=== PATIENT | male | born 2000 | race Caucasian/White ===

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

== ENCOUNTER 2021-01-11 22:00 | Inpatient (IN) | payer MEDICAID, OTHER ==
[2021-01-11 22:09] VITALS: RESP 18
--- NOTE | 2021-01-11 23:12 | ED ---
Psych HPI - General Chief Complaint: Psychiatric Symptoms Stated Complaint: Mental Health Time Seen by Provider: 01/11/21 22:15 Source: patient, RN notes reviewed, old records reviewed Mode of arrival: ambulatory - History of Present Illness Initial Comments: This is a 20-year-old male DF for evaluation patient has history of psychiatric illness coming in for psychiatric evaluation and treatment. Patient denies recent drugs or alcohol. Patient states he has continued racing thoughts unable control house painstakingly is thinking of suicide MD Complaint: suicidal ideation, feels depressed -: days(s) Associated Psychiatric Symptoms: depression, suicidal ideation History of same: Yes Quality: constant Improves With: none Worsens With: none Associated Symptoms: denies other symptoms Treatments Prior to Arrival: placed on mental health hold If Self Harm: admits thoughts of self harm - Related Data Home Medications Medication Instructions Recorded Confirmed Testosterone Cypionate 200 mg IM Q14D 01/11/21 01/11/21 [Depo-Testosterone] Allergies Allergy/AdvReac Type Severity Reaction Status Date / Time bee venom protein (honey bee) Allergy Unknown Verified 01/11/21 22:34 Review of Systems ROS Statement: Those systems with pertinent positive or pertinent negative responses have been documented in the HPI. ROS Other: All systems not noted in ROS Statement are negative. Past Medical History Past Medical History: No Reported History History of Any Multi-Drug Resistant Organisms: None Reported Additional Past Surgical History / Comment(s): testicular torsion Past Psychological History: No Psychological Hx Reported Smoking Status: Never smoker Past Alcohol Use History: Occasional Past Drug Use History: Marijuana General Exam Limitations: no limitations General appearance: alert, in no apparent distress Head exam: Present: atraumatic, normocephalic, normal inspection Eye exam: Present: normal appearance, PERRL, EOMI. Absent: scleral icterus, conjunctival injection, periorbital swelling ENT exam: Present: normal exam, mucous membranes moist Neck exam: Present: normal inspection. Absent: tenderness, meningismus, lymphadenopathy Respiratory exam: Present: normal lung sounds bilaterally. Absent: respiratory distress, wheezes, rales, rhonchi, stridor Cardiovascular Exam: Present: regular rate, normal rhythm, normal heart sounds. Absent: systolic murmur, diastolic murmur, rubs, gallop, clicks GI/Abdominal exam: Present: soft, normal bowel sounds. Absent: distended, tenderness, guarding, rebound, rigid Extremities exam: Present: normal inspection, full ROM, normal capillary refill. Absent: tenderness, pedal edema, joint swelling, calf tenderness Back exam: Present: normal inspection Neurological exam: Present: alert, oriented X3, CN II-XII intact Psychiatric exam: Present: normal affect, normal mood Skin exam: Present: warm, dry, intact, normal color. Absent: rash Course Vital Signs 01/11/21 22:03 Temperature 97.9 F Pulse Rate 73 Respiratory 18 Rate Blood Pressure 143/83 O2 Sat by Pulse 98 Oximetry - Reevaluation(s) Reevaluation #1: 01/11/21 23:11 Medical records reviewed Reevaluation #2: 01/11/21 23:11 Attic record for psychiatric evaluation Medical Decision Making - Medical Decision Making 20 male seen and evaluated psychiatry patient will be admitted for psychiatric evaluation and treatment - Lab Data Lab Results 01/11/21 Range/Units 23:18 Urine Color Yellow Urine Appearance Clear (Clear) Urine pH 5.5 (5.0-8.0) Ur Specific [place] 1.024 (1.001-1.035) Urine Protein Trace H (Negative) Urine Glucose (UA) Negative (Negative) Urine Ketones Trace H (Negative) Urine Blood Negative (Negative) Urine Nitrite Negative (Negative) Urine Bilirubin Negative (Negative) Urine Urobilinogen <2.0 (<2.0) mg/dL Ur Leukocyte Esterase Negative (Negative) Urine Opiates Screen Not Detected (NotDetected) Ur Oxycodone Screen Not Detected (NotDetected) Urine Methadone Screen Not Detected (NotDetected) Ur Propoxyphene Screen Not Detected (NotDetected) Ur Barbiturates Screen Not Detected (NotDetected) U Tricyclic Antidepress Not Detected (NotDetected) Ur Phencyclidine Scrn Not Detected (NotDetected) Ur Amphetamines Screen Not Detected (NotDetected) U Methamphetamines Scrn Not Detected (NotDetected) U Benzodiazepines Scrn Not Detected (NotDetected) Urine Cocaine Screen Not Detected (NotDetected) U Marijuana (THC) Screen Detected H (NotDetected) Disposition Clinical Impression: Acute anxiety, Depression, Suicidal ideation Disposition: TRANSFER TO PSYCH HOSP/UNIT Condition: Fair Is patient prescribed a controlled substance at d/c from ED?: No Referrals: Christian Dc MD [Primary Care Provider] - 1-2 days
[2021-01-11 23:42] LABS: Appearance,Urine Clear (Clear); Bilirubin,Urine Negative (Negative); Blood,Urine Negative (Negative); Color,Urine Yellow; Glucose,Urine (UA) Negative (Negative); Ketones,Urine Trace (Negative); Leukocyte Esterase,Urine Negative (Negative); Nitrite,Urine Negative (Negative); PH, Urine 5.5 (5.0-8.0); Protein,Urine Trace (Negative); Specific Gravity,Urine 1.024 (1.001-1.035); Urobilinogen,Urine <2.0 mg/dL (<2.0)
[2021-01-11 23:58] LABS: Amphetamine Screen,Urine Not Detected (NotDetected); Barbiturate Screen,Urine Not Detected (NotDetected); Benzodiazepines Screen,Urine Not Detected (NotDetected); Cocaine Screen,Urine Not Detected (NotDetected); Methadone Screen, Urine Not Detected (NotDetected); Opiate Screen,Urine Not Detected (NotDetected); Oxycodone Screen, Urine Not Detected (NotDetected); Phencyclidine Screen,Urine Not Detected (NotDetected); Tricyclic Antidepressant,Urine Not Detected (NotDetected)
[2021-01-11 23:59] LABS: Urn Cannabinoid Scrn Detected (NotDetected)
[2021-01-12] MEDS ORDERED: MAGNESIUM HYDROXIDE 2,400 MG/10 ML CUP PO PRN (02:30)
[2021-01-12] MEDS ORDERED: ACETAMINOPHEN TAB 325 MG TAB PO PRN (02:30)
[2021-01-12] MEDS ORDERED: MAG HYDROX/AL HYDROX/SIMETH 30 ML CUP PO PRN (02:30)
[2021-01-12] MEDS ORDERED: LORazepam 1 MG TAB PO PRN (02:30)
[2021-01-12 08:35] LABS: Basophils # (A) 0.1 k/uL (0-0.2); Basophils % (A) 1 %; Eosinophils # (A) 0.2 k/uL (0-0.7); Eosinophils % (A) 4 %; HCT 43.3 % (39.0-53.0); HGB 15.2 gm/dL (13.0-17.5); Lymphocytes # (A) 1.8 k/uL (1.0-4.8); Lymphocytes % (A) 31 %; MCH 30.3 pg (25.0-35.0); MCV 86.5 fL (80.0-100.0); Mean Platelet Volume 7.7; Monocytes # (A) 0.6 k/uL (0-1.0); Monocytes % (A) 9 %; Neutrophils # (A) 3.2 k/uL (1.3-7.7); Neutrophils % (A) 54 %; Platelet Count 251 k/uL (150-450); RBC 5.01 m/uL (4.30-5.90); RDW 13.3 % (11.5-15.5)
[2021-01-12 08:59] LABS: ALT 44 U/L (4-49); AST 35 U/L (17-59); African American GFR (CKD) >90 (>60 ml/min/1.73 sqM); Albumin 4.4 g/dL (3.5-5.0); Alkaline Phosphatase 89 U/L (38-126); Anion Gap 6 mmol/L; Bilirubin,Unconjugated 0.9 mg/dL (0.0-1.1); Blood Urea Nitrogen 15 mg/dL (9-20); Calcium 9.6 mg/dL (8.4-10.2); Carbon Dioxide 28 mmol/L (22-30); Chloride 104 mmol/L (98-107); Cholesterol 190 mg/dL (<200); Glucose 82 mg/dL (74-99); HDL Cholesterol 29 mg/dL (40-60); LDL Cholesterol,Calculated 140 mg/dL (0-99); Non-African American GFR(CKD) >90 (>60 ml/min/1.73 sqM); Potassium 4.3 mmol/L (3.5-5.1); Sodium 138 mmol/L (137-145); Total Bilirubin 0.8 mg/dL (0.2-1.3); Total Protein 7.3 g/dL (6.3-8.2); Triglycerides 106 mg/dL (<150)
[2021-01-12] MEDS ORDERED: LORazepam 2 MG/ML INJ IM PRN (11:32)
--- NOTE | 2021-01-12 11:43 | P.HP ---
Psychiatric H&P - . H&P Date: 01/12/21 History & Physical: Allergies Allergy/AdvReac Type Severity Reaction Status Date / Time bee venom protein (honey bee) Allergy Unknown Verified 01/11/21 22:34 Vital Signs Temp 97.9 F 01/12/21 09:06 Pulse 61 01/12/21 02:20 Resp 18 01/12/21 02:20 BP 156/82 01/12/21 02:20 Pulse Ox 97 01/12/21 02:20 Intake & Output 01/11/21 01/12/21 01/12/21 18:59 06:59 18:59 Weight 120.202 kg Laboratory Last Values WBC 6.0 k/uL (4.0-11.0) 01/12/21 07:11 RBC 5.01 m/uL (4.30-5.90) 01/12/21 07:11 Hgb 15.2 gm/dL (13.0-17.5) 01/12/21 07:11 Hct 43.3 % (39.0-53.0) 01/12/21 07:11 MCV 86.5 fL (80.0-100.0) 01/12/21 07:11 MCH 30.3 pg (25.0-35.0) 01/12/21 07:11 MCHC 35.0 g/dL (31.0-37.0) 01/12/21 07:11 RDW 13.3 % (11.5-15.5) 01/12/21 07:11 Plt Count 251 k/uL (150-450) 01/12/21 07:11 MPV 7.7 01/12/21 07:11 Neutrophils % 54 % 01/12/21 07:11 Lymphocytes % 31 % 01/12/21 07:11 Monocytes % 9 % 01/12/21 07:11 Eosinophils % 4 % 01/12/21 07:11 Basophils % 1 % 01/12/21 07:11 Neutrophils # 3.2 k/uL (1.3-7.7) 01/12/21 07:11 Lymphocytes # 1.8 k/uL (1.0-4.8) 01/12/21 07:11 Monocytes # 0.6 k/uL (0-1.0) 01/12/21 07:11 Eosinophils # 0.2 k/uL (0-0.7) 01/12/21 07:11 Basophils # 0.1 k/uL (0-0.2) 01/12/21 07:11 Sodium 138 mmol/L (137-145) 01/12/21 07:11 Potassium 4.3 mmol/L (3.5-5.1) 01/12/21 07:11 Chloride 104 mmol/L (98-107) 01/12/21 07:11 Carbon Dioxide 28 mmol/L (22-30) 01/12/21 07:11 Anion Gap 6 mmol/L 01/12/21 07:11 BUN 15 mg/dL (9-20) 01/12/21 07:11 Creatinine 1.01 mg/dL (0.66-1.25) 01/12/21 07:11 Est GFR (CKD-EPI)AfAm >90 (>60 ml/min/1.73 sqM) 01/12/21 07:11 Est GFR (CKD-EPI)NonAf >90 (>60 ml/min/1.73 sqM) 01/12/21 07:11 Glucose 82 mg/dL (74-99) 01/12/21 07:11 Calcium 9.6 mg/dL (8.4-10.2) 01/12/21 07:11 Total Bilirubin 0.8 mg/dL (0.2-1.3) 01/12/21 07:11 Conjugated Bilirubin 0.0 mg/dL (0.0-0.3) 01/12/21 07:11 Unconjugated Bilirubin 0.9 mg/dL (0.0-1.1) 01/12/21 07:11 Delta Bilirubin 0.0 mg/dL (0.0-0.2) 01/12/21 07:11 AST 35 U/L (17-59) 01/12/21 07:11 ALT 44 U/L (4-49) 01/12/21 07:11 Alkaline Phosphatase 89 U/L (38-126) 01/12/21 07:11 Total Protein 7.3 g/dL (6.3-8.2) 01/12/21 07:11 Albumin 4.4 g/dL (3.5-5.0) 01/12/21 07:11 Triglycerides 106 mg/dL (<150) 01/12/21 07:11 Cholesterol 190 mg/dL (<200) 01/12/21 07:11 LDL Cholesterol, Calc 140 mg/dL (0-99) H 01/12/21 07:11 HDL Cholesterol 29 mg/dL (40-60) L 01/12/21 07:11 TSH 4.560 mIU/L (0.465-4.680) 01/12/21 07:11 Urine Color Yellow 01/11/21 23:18 Urine Appearance Clear (Clear) 01/11/21 23:18 Urine pH 5.5 (5.0-8.0) 01/11/21 23:18 Ur Specific [place] 1.024 (1.001-1.035) 01/11/21 23:18 Urine Protein Trace (Negative) H 01/11/21 23:18 Urine Glucose (UA) Negative (Negative) 01/11/21 23:18 Urine Ketones Trace (Negative) H 01/11/21 23:18 Urine Blood Negative (Negative) 01/11/21 23:18 Urine Nitrite Negative (Negative) 01/11/21 23:18 Urine Bilirubin Negative (Negative) 01/11/21 23:18 Urine Urobilinogen <2.0 mg/dL (<2.0) 01/11/21 23:18 Ur Leukocyte Esterase Negative (Negative) 01/11/21 23:18 Urine Opiates Screen Not Detected (NotDetected) 01/11/21 23:18 Ur Oxycodone Screen Not Detected (NotDetected) 01/11/21 23:18 Urine Methadone Screen Not Detected (NotDetected) 01/11/21 23:18 Ur Propoxyphene Screen Not Detected (NotDetected) 01/11/21 23:18 Ur Barbiturates Screen Not Detected (NotDetected) 01/11/21 23:18 U Tricyclic Antidepress Not Detected (NotDetected) 01/11/21 23:18 Ur Phencyclidine Scrn Not Detected (NotDetected) 01/11/21 23:18 Ur Amphetamines Screen Not Detected (NotDetected) 01/11/21 23:18 U Methamphetamines Scrn Not Detected (NotDetected) 01/11/21 23:18 U Benzodiazepines Scrn Not Detected (NotDetected) 01/11/21 23:18 Urine Cocaine Screen Not Detected (NotDetected) 01/11/21 23:18 U Marijuana (THC) Screen Detected (NotDetected) H 01/11/21 23:18 Coronavirus (PCR) Not Detected (Not Detectd) 01/12/21 01:02 01/12/21 10:33 IDENTIFYING DATA: Patient is a 20-year-old male who currently lives with his parents in a house and has siblings. Patient currently works at [employer]. HPI: Patient presented to the hospital yesterday with complaints of racing thoughts, suicidal ideations and depression. Patient apparently had a negative UA however UDS is positive for THC. Patient was admitted voluntarily to the mental health unit for treatment. Patient was seen this morning and agreeable to speak a music writer. He was fairly constricted in his affect and appeared to be depressed. He states that he has been feeling depressed for the past month and states that his girlfriend recently had broken up with him. He claims that "I pushed her away" and states that he has been smoking marijuana heavily. He claims that he was smoking approximately 1 g every day however states that he has been "sober for 51 days". He states that he does not know why his UDS is positive for marijuana. He claims that his mood is depressed and he is having anxiety at this time. He claims that he has been "hard on myself" and has a poor self-esteem. He claims that he wants to lose weight. He claims that he is also embarrassed about his job and wants to get into a skilled trade. He states that he stopped taking the medications which are prescribed on his last mental health admission in May. He claims that the medication "wasn't helping me". He states that he is currently suicidal at this time however has no intent or plan on the unit. He states that initially he was thinking about jumping into the river however states "I can't do that". He states that his sleep has been fair approximately 7 hours a night and states that his appetite is also fair. He is denying any paranoia at this time. He claims his concentration has been poor. Patient denies any homicidal ideations intent or plan. At this time patient denies any auditory or visual hallucinations. Patient denies any flight of ideas racing thoughts and increased in goal directed behavior. Patient admits to using nicotine products including vaping daily, etoh on the weekends approx 5-6 beers in one sitting. PAST PSYCHIATRIC HISTORY: Patient states that he has a history of depression and anxiety. Patient was previously on Paxil, Wellbutrin, trazodone, melatonin. Patient was last psychiatrically hospitalized in May 2020. Patient denies any psychiatric outpatient follow-up. Patient denies any history of suicide attempts in the past. PMH:denies ALLERGIES: as per EMR CHEMICAL DEPENDENCY HISTORY: as per HPI FAMILY PSYCHIATRIC/SUBSTANCE USE HISTORY: denies SOCIAL HISTORY: Patient was born and raised in [facility]. He states that he currently lives in [place] with his family, parents and siblings. 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 He is currently unmarried and has no kids. He states that he completed high school however has no college. He denies any legal history. MENTAL STATUS EXAM: General Appearance: Patient appears to be overweight, stated age is alert, concrete, directable.. Patient appears to have poor hygiene and grooming. Behavior: Patient is seated without any agitated behavior. [place] and monotone Speech: Patient's speech is fluent and nonpressured. Mood/Affect: Patient reports their mood is depressed and anxious, affect is congruent and constricted. Suicidality/Homicidality: Patient denies having any homicidal ideation intent or plan. He claims that he does have suicidal thoughts however no intent or plan. Perceptions: Patient denies any visual hallucinations and denies any auditory hallucinations Though content/process: Poverty of content, vague and evasive. Not endorsing any delusions or paranoia. Memory and concentration: AOX3, grossly intact for the purposes of this session. Can spell "WORLD" backwards Judgment and insight: poor STRENGTHS/WEAKNESSES: strength is that patient is resilient. Weakness is that patient has poor judgment and was noncompliant with his medications INTELLECT: average IMPRESSIONS: Major depressive disorder, recurrent, severe without psychotic features Anxiety disorder unspecified Cannabis use disorder mild Alcohol abuse Nicotine dependence PLAN: -Patient is admitted under voluntary status to MHU for stabilization of psychiatric symptoms and safety. Patient has signed adult voluntary form and medication consent and is placed in patient's chart. -Medications : Will start patient on Zoloft 50 mg daily for mood/anxiety. Melatonin 5 mg daily at bedtime for insomnia. -Ativan PRN for agitation/aggression -Patient denies any history of alcohol withdrawal complications or DTs and patient is at low risk for withdrawal, therefore will hold off on ciwa at this time. -Patient was counselled on substance abuse and desired to cut back on use -Patient was informed of the risks, benefits and side effects of the medication and patient verbally consented to taking the medications. Patient signed med consent form and was placed in chart. -Internal Medicine consult to perform medical evaluation and physical. -NRT - nicotine gum -SW on board for discharge planning. Encourage patient to participate in groups to work on coping skills.
[2021-01-12] MEDS: SERTRALINE 50 MG TAB PO SCH (11:44)
[2021-01-12 13:52] LABS: Hemoglobin A1C 5.2 % (4.0-6.0)
[2021-01-12 15:15] VITALS: TEMP 98.5
--- NOTE | 2021-01-12 19:30 | P.MDCNMH ---
History of Present Illness H&P Date: 01/12/21 Chief Complaint: Suicidal ideation Reason for consultation- medical history and physical for psychiatric admission Mr. Holguin is a 20-year-old female with no significant past medical history, psychiatric history positive for depression and anxiety coming into the hospital voluntarily for being treated. Patient states that he recently broke up with his girlfriend and since then feeling depressed. He started to smoke marijuana but later on quit. Eventually patient started to feel very low depressed and having suicidal thoughts and ideation. He is currently in the psychiatric unit being treated. Patient denies having any chronic medical conditions, except for psychiatric condition he does not take any other medications. He denies any drug ALLERGIES. In the ER at the time of admission his vitals temperature 97.9, heart rate 73, respiratory rate 18, blood pressure 143/83, saturating at 98% on room air. He had labs done showing white count of 6, hemoglobin 15.2, platelets 251. Sodium 138, potassium 4.3, chloride 104, crit 28, BUN 15 and 1.01. urine analysis negative for nitrites and leukocyte esterase. Urinalysis positive for marijuana. Shaw virus was negative Review of Systems CONSTITUTIONAL: No fever, no malaise, no fatigue. HEENT: No recent visual problems or hearing problems. Denied any sore throat. CARDIOVASCULAR: No orthopnea, PND, no palpitations, no syncope. PULMONARY: No shortness of breath, no cough, no hemoptysis. GASTROINTESTINAL: No diarrhea, no nausea, no vomiting. Normoactive bowel sounds. NEUROLOGICAL: No headaches, no weakness, no numbness. HEMATOLOGICAL: Denies any bleeding or petechiae. GENITOURINARY: Denies any burning micturition, frequency, or urgency. MUSCULOSKELETAL/RHEUMATOLOGICAL: Denies any joint pain, swelling, or any muscle pain. ENDOCRINE: Denies any polyuria or polydipsia. Past Medical History Past Medical History: No Reported History History of Any Multi-Drug Resistant Organisms: None Reported Additional Past Surgical History / Comment(s): testicular torsion Past Anesthesia/Blood Transfusion Reactions: No Reported Reaction Smoking Status: Never smoker Medications and Allergies Home Medications Medication Instructions Recorded Confirmed Type Testosterone Cypionate 200 mg IM Q14D 01/11/21 01/11/21 History [Depo-Testosterone] Allergies Allergy/AdvReac Type Severity Reaction Status Date / Time bee venom protein (honey bee) Allergy Unknown Verified 01/11/21 22:34 Physical Exam Vitals: Vital Signs Temp Pulse Pulse Resp BP BP Pulse Ox 01/12/21 15:15 98.5 F 01/12/21 09:06 97.9 F 01/12/21 02:20 98 F 61 18 156/82 97 01/12/21 01:38 98 F 67 18 144/78 95 01/11/21 22:03 97.9 F 73 18 143/83 98 Intake and Output 01/12/21 01/12/21 01/12/21 06:59 14:59 22:59 Other: Weight 120.202 kg GENERAL: The patient is alert and oriented x3, not in any acute distress. Well developed, well nourished. HEENT: Pupils are round and equally reacting to light. EOMI. No scleral icterus. No conjunctival pallor. CARDIOVASCULAR: S1 and S2 present. No murmurs, rubs, or gallops. PULMONARY: Chest is clear to auscultation, no wheezing or crackles. ABDOMEN: Soft, nontender, nondistended, normoactive bowel sounds. No palpable organomegaly. MUSCULOSKELETAL: No joint swelling or deformity. EXTREMITIES: No cyanosis, clubbing, or pedal edema. Cranial Nerve Examination - Cranial Nerves Cranial Nerve I- Olfactory: Intact Cranial Nerve II- Optic: Intact Cranial Nerve III- Oculomotor: Intact Cranial Nerve IV- Trochlear: Intact Cranial Nerve V- Trigeminal: Intact Cranial Nerve - Abducens: Intact Cranial Nerve VII- Facial: Intact Cranial Nerve VIII- Auditory: Intact Cranial Nerve IX- Glossopharyngeal: Intact Cranial Nerve X- Vagus: Intact Cranial Nerve XI- Accessory: Intact Cranial Nerve XII- Hypoglossal: Intact Results CBC & Chem 7: 01/12/21 07:11 01/12/21 07:11 Labs: Abnormal Lab Results - Last 24 Hours (Table) 01/11/21 01/12/21 Range/Units 23:18 07:11 LDL Cholesterol, Calc 140 H (0-99) mg/dL HDL Cholesterol 29 L (40-60) mg/dL Urine Protein Trace H (Negative) Urine Ketones Trace H (Negative) U Marijuana (THC) Screen Detected H (NotDetected) Assessment and Plan Assessment: ASSESSMENT Suicidal ideation Depression with anxiety Obesity with BMI of 39.1 PLAN: Management of depression with suicidal ideation as per psychiatric services. Will follow the patient on as-needed basis Thank you for the consult.
[2021-01-12] MEDS: MELATONIN 5 MG TABLET PO SCH (21:34)
[2021-01-13] MEDS: SERTRALINE 50 MG TAB PO SCH (08:14)
[2021-01-13 08:15] VITALS: BP 140/76; PULSE 77
--- NOTE | 2021-01-13 09:29 | P.PN ---
Progress Note - Text Progress Note Date: 01/13/21 Interval History: Patient was seen sitting in his room this morning and was directable and agree able to speak with medical underwriter in the office. Patient claims that he is feeling "tired today". He states that he was able to sleep throughout the night with no issues and denied any complaints. He claims that he feels "a bit better" today in terms of his mood and anxiety. He states that he is having mild suicidal thoughts however no intent or plan today. He claims that he has been going to some groups however was fairly vague about what he is learning in group. He states that he talk to his parents yesterday and claims that his parents are supportive of him. He continues to be monotone in fairly concrete and have a depressed affect. At this time patient denies any suicidal or homical ideations, intent or plan. Patient denies any auditory, visual hallucinations and denies any paranoia or delusions. Patient has been compliant with meds. He states that he has a fair appetite. Patient was fairly concerned that his tiredness today was due to the medications and asked about the side effects of Zoloft and wanted to stay on the same dose. Mental Status Exam: General Appearance: Patient appears to be overweight, stated age is alert, concrete, directable. Patient appears to have improving hygiene and grooming. Behavior: Patient is seated without any agitated behavior. [place] and monotone Speech: Patient's speech is fluent and nonpressured. Mood/Affect: Patient reports their mood is depressed and anxious, improving mildly, affect is congruent and constricted. Suicidality/Homicidality: Patient denies having any homicidal ideation intent or plan. He claims that he does have suicidal thoughts however no intent or plan. Perceptions: Patient denies any visual hallucinations and denies any auditory hallucinations Though content/process: Poverty of content, vague and evasive, improving mildly. Not endorsing any delusions or paranoia. Memory and concentration: AOX3, grossly intact for the purposes of this session. Judgment and insight: poor, improving mildly Assessment Major depressive disorder, recurrent, severe without psychotic features Anxiety disorder unspecified Cannabis use disorder mild Alcohol abuse Nicotine dependence Plan: -Patient continues to meet criteria for inpatient psychiatric admission for symptom stabilization and safety. Patient has signed adult voluntary form and medication consent and was placed in patient's chart. -Medications: Continue Zoloft 50 mg daily for mood/anxiety. Melatonin 5 mg daily at bedtime for insomnia. -Patient denies any history of alcohol withdrawal complications or DTs and patient is at low risk for withdrawal, therefore will hold off on ciwa at this time. -When necessary Ativan for agitation/aggression. -NRT - nicotine gum -SW on board for discharge planning. Encouraged the patient to participate in milieu. likely discharge in 1-2 days back home.
[2021-01-13] MEDS: MELATONIN 5 MG TABLET PO SCH (21:03)
[2021-01-14] MEDS: SERTRALINE 50 MG TAB PO SCH (08:23)
--- NOTE | 2021-01-14 09:44 | P.PN ---
Progress Note - Text Progress Note Date: 01/14/21 Interval History: Patient was seen lying in bed this morning and was directable and agreeable to speak with content writer in the office. Patient continues to state that he feels tired. He states that he is able to sleep throughout the night approximately 7 hours and denied any complaints. He claims that he feels the morning medication is making him feel tired. [employer] spoke with patient about possibly changing it to nighttime and patient was agreeable to this. He claims that he also spoke with his parents and was fairly vague about their conversation. He states that "they're supportive but they're not sure about the medications". He claims that his mood overall has been improving and is denying any anxiety today. He states that his suicidal thoughts then gradually improving and is denying any thoughts this morning. He claims that he has been going to some groups however was fairly vague about what he is learning in group. Patient denies any auditory, visual hallucinations and denies any paranoia or delusions. Patient has been compliant with meds. He states that he has a fair appetite. Mental Status Exam: General Appearance: Patient appears to be overweight, stated age is alert, concrete, directable. Patient appears to have improving hygiene and grooming. Behavior: Patient is seated without any agitated behavior. [place] Speech: Patient's speech is fluent and nonpressured. Mood/Affect: Patient reports their mood is improving mildly, affect is congruent and constricted. Suicidality/Homicidality: Patient denies having any homicidal ideation intent or plan. He is denying any suicidal thoughts intent or plans morning. Perceptions: Patient denies any visual hallucinations and denies any auditory hallucinations Though content/process: Poverty of content, vague, improving mildly. Not endorsing any delusions or paranoia. Logical Memory and concentration: AOX3, grossly intact for the purposes of this session. Judgment and insight: improving mildly Assessment Major depressive disorder, recurrent, severe without psychotic features Anxiety disorder unspecified Cannabis use disorder mild Alcohol abuse Nicotine dependence Plan: -Patient continues to meet criteria for inpatient psychiatric admission for symptom stabilization and safety. Patient has signed adult voluntary form and medication consent and was placed in patient's chart. -Medications: Switched Zoloft 50 mg to nighttime dosing for mood/anxiety. Discontinue melatonin -When necessary Ativan for agitation/aggression. -NRT - nicotine gum -SW on board for discharge planning. Encouraged the patient to participate in milieu. likely discharge tomorrow if patient does well overnight and is feeling less tired tomorrow.
[2021-01-14] MEDS ORDERED: SERTRALINE 50 MG TAB PO SCH (21:00)
--- NOTE | 2021-01-15 11:06 | P.DS ---
Providers Date of admission: 01/12/21 01:48 Expected date of discharge: 01/15/21 Attending physician: David Padgett MD Consults: 01/12/21 02:30 Consult Physician Routine Consulting Provider: Zeb Patel Consult Reason/Comments: H & P w/medical managament Do you want consulting provider notified?: Yes, Notify in am Primary care physician: Christian Dc - Discharge Diagnosis(es) (1) Major depressive disorder, recurrent severe without psychotic features Current Visit: Yes Status: Acute Priority: High (2) Cannabis use disorder, mild, abuse Current Visit: Yes Status: Acute Priority: Medium (3) Alcohol abuse Current Visit: Yes Status: Acute Priority: Medium (4) Nicotine dependence Current Visit: Yes Status: Acute Priority: Low Hospital Course: Admission HPI: Admission note was completed by proposal lead writer ""Patient is a 20-year-old male who currently lives with his parents in a house and has siblings. Patient currently works at [employer]. Patient presented to the hospital yesterday with complaints of racing thoughts, suicidal ideations and depression. Patient apparently had a negative UA however UDS is positive for THC. Patient was admitted voluntarily to the mental health unit for treatment. Patient was seen this morning and agreeable to speak a proposal lead writer. He was fairly constricted in his affect and appeared to be depressed. He states that he has been feeling depressed for the past month and states that his girlfriend recently had broken up with him. He claims that "I pushed her away" and states that he has been smoking marijuana heavily. He claims that he was smoking approximately 1 g every day however states that he has been "sober for 51 days". He states that he does not know why his UDS is positive for marijuana. He claims that his mood is depressed and he is having anxiety at this time. He claims that he has been "hard on myself" and has a poor self-esteem. He claims that he wants to lose weight. He claims that he is also embarrassed about his job and wants to get into a skilled trade. He states that he stopped taking the medications which are prescribed on his last mental health admission in May. He claims that the medication "wasn't helping me". He states that he is currently suicidal at this time however has no intent or plan on the unit. He states that initially he was thinking about jumping into the river however states "I can't do that". He states that his sleep has been fair approximately 7 hours a night and states that his appetite is also fair. He is denying any paranoia at this time. He c laims his concentration has been poor. Patient denies any homicidal ideations intent or plan. At this time patient denies any auditory or visual hallucinations. Patient denies any flight of ideas racing thoughts and increased in goal directed behavior. Patient admits to using nicotine products including vaping daily, etoh on the weekends approx 5-6 beers in one sitting." Hospital course: Upon admission to the unit patient was initially depressed and anxious. Patient was however directable and agreeable to commence treatment and signed adult voluntary form. Patient got along well with other patients on the unit and followed unit protocol. Patient was compliant with the medications and denied any side effects throughout hospital course. Patient was started on Zoloft 50 mg daily for mood/anxiety and melatonin at nighttime for insomnia. Due to patient's excessive tiredness during the day, Zoloft was switched to nighttime dosing and melatonin was discontinued which had much better effect. Patient spoke of his stressors and engaged in therapy both group and individual. Patient was also seen by medical team for history and physical exam. Throughout the course of the hospitalization patient gradually improved with regards to mood, anxiety, sleep and became more future oriented with improved insight and judgment. On the day of discharge patient denied any suicidal or homicidal ideations intent or plan denied any auditory or visual hallucinations. Patient endorsed wanting to live for his future and family. The patient denied any access to guns or weapons. Patient denied any paranoia and did not endorse any delusions. Patient does have a significant history of substance abuse and was counseled on abstaining from all substances including alcohol and marijuana. Patient elected to do outpatient substance use treatment program through [facility]. Patient was also counseled on the medications and need for regular compliance and was encouraged to follow-up with their outpatient appointment for mental health and also for primary care. Prior to discharge a family meeting will be arranged by sexual assault social worker to answer any questions and ensure safety upon discharge. Mental status exam: General Appearance: Patient appears to be overweight, stated age is alert, pleasant, and cooperative. Patient is in no acute distress and has improved hygiene and grooming Behavior: Patient is calmly seated without any agitated behavior. Speech: Patient's speech is fluent and nonpressured. Mood/Affect: Patient reports their mood is "better", affect is congruent and euthymic. Suicidality/Homicidality: Patient denies having any suicidal or homicidal ideation intent or plan. Perceptions: Patient denies any auditory or visual hallucinations. Though content/process: There is no evidence of any delusional thought content and thought process is linear and goal-directed. more future oriented Memory and concentration: AOX3, grossly intact for the purposes of this session. Can spell "WORLD" backwards correctly. Judgment and insight: improved with guarded prognosis Impression: Major depressive disorder, severe, recurrent without psychotic features Anxiety disorder unspecified Cannabis use disorder mild Alcohol abuse Nicotine dependence Plan: -Continue with discharge today as patient has improved and stabilized psychiatrically and is not currently an imminent threat to himself and/or others. -Continue medications: Zoloft 50 mg daily at bedtime for mood/anxiety -Patient was counseled on the need for medication compliance and appropriate follow-up at mental health and also primary care for medical issues. Patient verbalized understanding and agreed. -Social work to arrange for and conduct family meeting to ensure safety upon discharge and answer any questions/concerns. Social work also to arrange for patients follow up appointments with [facility] for psychiatric care along with follow up with primary care provider. -Patient counseled on abstaining from recreational drugs and marijuana and alcohol. Was informed/educated on the adverse effects on their physical and mental health. Patient verbally agreed and understood. -Patient was instructed to return to the hospital or seek immediate medical care if their psychiatric or medical symptoms do worsen or reoccur. Allergies Allergy/AdvReac Type Severity Reaction Status Date / Time bee venom protein (honey bee) Allergy Unknown Verified 01/11/21 22:34 Laboratory Results WBC 6.0 k/uL (4.0-11.0) 01/12/21 07:11 RBC 5.01 m/uL (4.30-5.90) 01/12/21 07:11 Hgb 15.2 gm/dL (13.0-17.5) 01/12/21 07:11 Hct 43.3 % (39.0-53.0) 01/12/21 07:11 MCV 86.5 fL (80.0-100.0) 01/12/21 07:11 MCH 30.3 pg (25.0-35.0) 01/12/21 07:11 MCHC 35.0 g/dL (31.0-37.0) 01/12/21 07:11 RDW 13.3 % (11.5-15.5) 01/12/21 07:11 Plt Count 251 k/uL (150-450) 01/12/21 07:11 MPV 7.7 01/12/21 07:11 Neutrophils % 54 % 01/12/21 07:11 Lymphocytes % 31 % 01/12/21 07:11 Monocytes % 9 % 01/12/21 07:11 Eosinophils % 4 % 01/12/21 07:11 Basophils % 1 % 01/12/21 07:11 Neutrophils # 3.2 k/uL (1.3-7.7) 01/12/21 07:11 Lymphocytes # 1.8 k/uL (1.0-4.8) 01/12/21 07:11 Monocytes # 0.6 k/uL (0-1.0) 01/12/21 07:11 Eosinophils # 0.2 k/uL (0-0.7) 01/12/21 07:11 Basophils # 0.1 k/uL (0-0.2) 01/12/21 07:11 Sodium 138 mmol/L (137-145) 01/12/21 07:11 Potassium 4.3 mmol/L (3.5-5.1) 01/12/21 07:11 Chloride 104 mmol/L (98-107) 01/12/21 07:11 Carbon Dioxide 28 mmol/L (22-30) 01/12/21 07:11 Anion Gap 6 mmol/L 01/12/21 07:11 BUN 15 mg/dL (9-20) 01/12/21 07:11 Creatinine 1.01 mg/dL (0.66-1.25) 01/12/21 07:11 Est GFR (CKD-EPI)AfAm >90 (>60 ml/min/1.73 sqM) 01/12/21 07:11 Est GFR (CKD-EPI)NonAf >90 (>60 ml/min/1.73 sqM) 01/12/21 07:11 Glucose 82 mg/dL (74-99) 01/12/21 07:[address] Glu mg/dL 103 01/12/21 07:11 Hemoglobin A1c 5.2 % (4.0-6.0) 01/12/21 07:11 Calcium 9.6 mg/dL (8.4-10.2) 01/12/21 07:11 Total Bilirubin 0.8 mg/dL (0.2-1.3) 01/12/21 07:11 Conjugated Bilirubin 0.0 mg/dL (0.0-0.3) 01/12/21 07:11 Unconjugated Bilirubin 0.9 mg/dL (0.0-1.1) 01/12/21 07:11 Delta Bilirubin 0.0 mg/dL (0.0-0.2) 01/12/21 07:11 AST 35 U/L (17-59) 01/12/21 07:11 ALT 44 U/L (4-49) 01/12/21 07:11 Alkaline Phosphatase 89 U/L (38-126) 01/12/21 07:11 Total Protein 7.3 g/dL (6.3-8.2) 01/12/21 07:11 Albumin 4.4 g/dL (3.5-5.0) 01/12/21 07:11 Triglycerides 106 mg/dL (<150) 01/12/21 07:11 Cholesterol 190 mg/dL (<200) 01/12/21 07:11 LDL Cholesterol, Calc 140 mg/dL (0-99) H 01/12/21 07:11 HDL Cholesterol 29 mg/dL (40-60) L 01/12/21 07:11 TSH 4.560 mIU/L (0.465-4.680) 01/12/21 07:11 Urine Color Yellow 01/11/21 23:18 Urine Appearance Clear (Clear) 01/11/21 23:18 Urine pH 5.5 (5.0-8.0) 01/11/21 23:18 Ur Specific [place] 1.024 (1.001-1.035) 01/11/21 23:18 Urine Protein Trace (Negative) H 01/11/21 23:18 Urine Glucose (UA) Negative (Negative) 01/11/21 23:18 Urine Ketones Trace (Negative) H 01/11/21 23:18 Urine Blood Negative (Negative) 01/11/21 23:18 Urine Nitrite Negative (Negative) 01/11/21 23:18 Urine Bilirubin Negative (Negative) 01/11/21 23:18 Urine Urobilinogen <2.0 mg/dL (<2.0) 01/11/21 23:18 Ur Leukocyte Esterase Negative (Negative) 01/11/21 23:18 Urine Opiates Screen Not Detected (NotDetected) 01/11/21 23:18 Ur Oxycodone Screen Not Detected (NotDetected) 01/11/21 23:18 Urine Methadone Screen Not Detected (NotDetected) 01/11/21 23:18 Ur Propoxyphene Screen Not Detected (NotDetected) 01/11/21 23:18 Ur Barbiturates Screen Not Detected (NotDetected) 01/11/21 23:18 U Tricyclic Antidepress Not Detected (NotDetected) 01/11/21 23:18 Ur Phencyclidine Scrn Not Detected (NotDetected) 01/11/21 23:18 Ur Amphetamines Screen Not Detected (NotDetected) 01/11/21 23:18 U Methamphetamines Scrn Not Detected (NotDetected) 01/11/21 23:18 U Benzodiazepines Scrn Not Detected (NotDetected) 01/11/21 23:18 Urine Cocaine Screen Not Detected (NotDetected) 01/11/21 23:18 U Marijuana (THC) Screen Detected (NotDetected) H 01/11/21 23:18 Coronavirus (PCR) Not Detected (Not Detectd) 01/12/21 01:02 Vital Signs Temp 98.5 F 01/12/21 15:15 Pulse 77 01/13/21 08:15 Resp 18 01/12/21 02:20 BP 140/76 01/13/21 08:15 Pulse Ox 97 01/12/21 02:20 Patient Condition at Discharge: Stable Plan - Discharge Summary Discharge Rx Participant: No New Discharge Prescriptions: New Sertraline [Zoloft] 50 mg PO HS 30 Days tab Continue Testosterone Cypionate [Depo-Testosterone] 200 mg IM Q14D Discharge Medication List Testosterone Cypionate [Depo-Testosterone] 200 mg IM Q14D 01/11/21 [History] Sertraline [Zoloft] 50 mg PO HS 30 Days tab 01/15/21 [Rx] Follow up Appointment(s)/Referral(s): [facility] [Outside] - 01/20/21 11:00 am (01/20/21 at 11 am with Kemi 01/27/21 at 11 am with Kemi) Christian Dc MD [Primary Care Provider] - 1-2 days Patient Instructions/Handouts: How to Stop Smoking (DC), Depression (DC), Generalized Anxiety Disorder (GEN) Activity/Diet/Wound Care/Special Instructions: Activity and diet as tolerated. Avoid the use of street drugs and alcohol. Take all medications as prescribed. When you are in need of refills on your medications please contact your medical provider and/or outpatient psychiatrist to have this done. Please go to scheduled outpatient appointment for aftercare treatment. If symptoms return or become worse, call the crisis line at and/or go to the nearest emergency room for evaluation. Discharge Disposition: HOME SELF-CARE
== END 2021-01-15 11:17 | disposition home or self-care (01) | DRG 885 ==
LOC: EC 22:00 → 3MHU 01-12 01:48
PROVIDERS: ADMIT Psychiatry & Neurology Psychiatry; ATTEND Psychiatry & Neurology Psychiatry
DX: F33.2 Major depressive disorder, recurrent severe without psychotic features (principal); R45.851 Suicidal ideations; F41.9 Anxiety disorder, unspecified; F17.200 Nicotine dependence, unspecified, uncomplicated; F10.10 Alcohol abuse, uncomplicated; F12.10 Cannabis abuse, uncomplicated; Z20.822 Contact with and (suspected) exposure to COVID-19
CPT/HCPCS: 80053; 80061; 80306; 81003; 82075; 82248; 83036; 84443; 85025; 87635; 99285